=== PATIENT | female | born 1985 | race Caucasian/White ===

== ENCOUNTER 2023-05-25 10:57 | Emergency (ER) | payer BC, SELFPAY ==
[2023-05-25 10:59] VITALS: BP 114/78; PULSE 65; RESP 16; TEMP 36.2; O2SAT 100; BMI 19.5
--- NOTE | 2023-05-25 11:02 | ED_ITS ---
HPI - General Adult General Chief complaint: Chest Pain Stated complaint: chest pain Time Seen by Provider: 05/25/23 17:15 Source: patient Mode of arrival: ambulatory Limitations: no limitations History of Present Illness HPI narrative: Patient is a 37-year-old female presents emergency department for evaluation of chest pain. She reports that it has been intermittent for the past week, substernal, able to point to the area with 2 fingers, nonradiating, lasting 1-2 minutes before self-resolving. Reports that she has noticed it at times to be worse if she has not eaten in a while, but also has noticed it after eating as well. On 1 occurrence at a walker in the middle of the night. She denies any associated fevers, chills, cough, shortness of breath, difficulty breathing, nausea, vomiting, abdominal pain. Denies any use of oral contraceptives. Denies any personal history of DVT/PE, recent immobility, lower extremity redness pain or swelling, or recent surgery. Related Data Previous Rx's Medication Instructions Recorded omeprazole 20 mg capsule,delayed 20 mg PO DAILY #14 caps 05/25/23 release Allergies Allergy/AdvReac Type Severity Reaction Status Date / Time Penicillins Allergy Unknown Verified 05/25/23 11:05 Review of Systems Review of Systems: Constitutional : No Weight loss, No Fever, No Chills ENT/Mouth :? No sore throat, No Rhinorrhea Eyes: No Eye Pain, No Swelling Cardiovascular : pos Chest Pain, no SOB, no Dyspnea on Exertion, No Orthopnea, No Edema, No Palpitations Respiratory : No Cough, No Sputum Gastrointestinal : No Nausea, No Vomiting, No Diarrhea, No abdominal Pain, No Hematochezia, No Melena Genitourinary : No Dysuria, No Urinary Frequency Musculoskeletal : No joint pain, No Myalgias, No Joint Swelling Skin : No Skin Lesions, No rash Neuro : No Weakness, No Numbness, No Dizziness, No Headache Psych : No Anxiety/Panic, No Depression Heme/Lymph: No Bruising, No Lymphadenopathy Yes all other systems are reviewed and are negative [facility] Past Medical History Attestation statement: The following information was validated with the patient. Source: old records reviewed Social History Social History Advance Directives: No Advance Directives Information Provided: Yes Physical Exam ED Vital Signs: Vital Signs - 24 hr 05/25/23 10:59 05/25/23 17:22 Temperature 97.1 F 97.9 F Pulse Rate 65 44 L Respiratory Rate 16 Blood Pressure 114/78 125/54 L Pulse Oximetry 100 100 Oxygen Delivery Method Room Air Room Air BMI result Body Mass Index 19.5 Appearance: Alert.?Oriented to person, place and time. No acute distress.?Normal affect. Eyes: Pupils equal, round and reactive to light.? ENT: Pharynx normal.?? Neck: Normal inspection.? Neck supple.?? CVS: Heart sounds normal. Normal heart rate and rhythm.? Pulses normal.?? Respiratory: No respiratory distress.? Lung sounds clear to auscultation bilaterally. Midsternal reproducible chest pain with deep palpation? Abdomen: Soft and non-tender. Normoactive bowel sounds. ? Skin: Skin warm and dry.? Normal skin color.? Extremities: No lower extremity edema.? No calf ttp? Neuro: Moves all extremities spontaneously. Sensation intact bilaterally. CN II- XII intact. No focal neuro deficits. Ambulates with normal steady gait. Course Course Course Narrative: This is an RME: Additional HPI, ROS, PE not included below will be deferred to primary provider. This is a [id number], with no known past medical history, presenting to the emergency department to the emergency department with complaints of intermittent chest pain for the past week. Pain last for several minutes, resolves on its own. No shortness of breath. Pain has woken her up in the middle of the night. VSS. Plan: Further ED evaluation required. Labs, EKG, chest xray ordered. Medical Decision Making Medical Decision Making MDM Narrative: Patient is a 37-year-old female with no reported medical history who presents emergency department for evaluation of chest pain as per HPI. At the time my examination she is overall well-appearing, asymptomatic from pain at this time. She is afebrile, no hypoxia or tachypnea. Speaking clear full sentences. No respiratory compromise, LS CTA, low suspicion for pneumonia, pneumothorax, offered CXR, however used shared decision making with patient and she declines. Upon deep palpation of the midsternal region there is mildly reproducible chest pain. She has been noted to be bradycardic while in the emergency department, She is physically active, reports baseline heart rate 50-60 bpm's, she is currently asymptomatic, desk monitor revealing a sinus bradycardia. Reviewed labs obtained from rapid medical examination, no leukocytosis, no anemia, BMP is overall unremarkable. Troponin <2.7, EKG revealing normal sinus rhythm with no ST elevation, ST depression, or T-wave inversion, unlikely ACS. PERC negative, unlikely pulmonary embolism. Discussed etiologies for pain with patient at this time including musculoskeletal versus acid reflux, she would like to trial a cou rse of antacid management and follow-up with primary care provider which is reasonable. At this time she is stable for discharge. Reviewed worrisome signs and symptoms that would warrant re-evaluation in the emergency department. All questions were answered. Stable for discharge. Differential Diagnosis Differential Diagnoses: The differential diagnosis associated with the presentation includes (As noted above) Admission/Observation Consideration of admission/observation: Escalation of care including admission/observation considered (I considered admission for chest pain, based on history, physical examination, and all investigations, did not feel admission was warranted.) Lab Data MDM Lab Attestation statement: I reviewed the patient's lab results. (As noted above) 05/25/23 11:18 05/25/23 11:18 Labs: Lab Results 05/25/23 05/25/23 05/25/23 Range/Units 11:18 11:18 11:18 WBC 5.1 (4.8-10.8) X10*3/uL RBC 4.40 (4.20-5.50) X10*6/uL Hgb 12.7 (12.0-16.0) g/dl Hct 38.0 (37.0-47.0) % MCV 86.4 (80.0-98.0) fL MCH 28.9 (27.0-33.0) pg MCHC 33.4 (31.0-35.0) g/dl RDW 12.0 (11.0-16.0) % Plt Count 160 (160-400) X10*3/uL MPV 10.6 (9.4-12.3) fL Immature Gran % (Auto) 0.2 (0.0-0.4) % Neut % (Auto) 70.7 (45-73) % Lymph % (Auto) 19.7 L (20-40) % Wells % (Auto) 7.4 (2-11) % Eos % (Auto) 1.4 (0-4) % Baso % (Auto) 0.6 (0-2) % Lymph # (Auto) 1.0 L (1.2-4.9) X10*3/uL Wells # (Auto) 0.4 (0.1-1.2) X10*3/uL Eos # (Auto) 0.1 (0.0-0.4) X10*3/uL Baso # (Auto) 0.0 (0.0-0.2) X10*3/uL Abs Immat Gran (auto) 0.01 (0.00-0.03) X10*3/uL Absolute Neuts (auto) 3.6 (2.0-8.3) x10*3/uL Absolute Nucleated RBC 0.000 (0.0-0.012) X10*3/uL Nucleated RBC % (auto) 0.0 (0.0-0.2) /100WBC Sodium 141 (135-145) mmol/L Potassium 4.3 (3.3-5.1) mmol/L Chloride 109 H (96-108) mmol/L Carbon Dioxide 22 (22-29) mmol/L Anion Gap 14 (12-20) BUN 17 H (9-16) mg/dL Creatinine 0.77 (0.5-1.4) mg/dL Estim Creat Clear Calc 70.0 Estimated GFR > 60 Random Glucose 82 (60-115) mg/dL Calcium 9.1 (8.4-10.2) mg/dL Troponin I High Sens < 2.7 (<3.5-17.0) ng/L Independent Interpretation I performed an independent interpretation of an: EKG (As noted above) Tests considered The following testing was considered but not selected: Chest x-ray, shared decision making with patient, she declined. CTA chest, perc negative, unlikely pulmonary embolism, CT deferred Prescription Management I considered prescription management with: Other (PPI) Discharge Plan Discharge Clinical Impression: Chest pain Patient Disposition: Home, Self-Care Instructions: Chest Pain (ED), Noncardiac Chest Pain (ED) Additional Instructions: As we discussed your blood work today with overall normal. As we discussed you may trial a course of anti acid medication for management to see whether this resolves her symptoms. I have sent a prescription for omeprazole to your pharmacy. Additionally, at the time of your examination the pain did not seem to worsen with particular movement, however if you find this to be the case she may trial a course of anti-inflammatory medications such as ibuprofen. Please contact your primary care provider and arrange for a follow-up visit within 2 days. Please return back to the emergency department with any new or worsening symptoms or concerns. Prescriptions: New omeprazole 20 mg capsule,delayed release(DR/EC) 20 mg PO DAILY Qty: 14 0RF Referrals: Physician,None [Primary Care Provider] -
--- NOTE | 2023-05-25 11:04 | ECG_ITS ---
Test Reason : CP Blood Pressure : / mmHG Vent. Rate : 072 BPM Atrial Rate : 072 BPM P-R Int : 164 ms QRS Dur : 074 ms QT Int : 394 ms P-R-T Axes : 078 098 062 degrees QTc Int : 431 ms Normal sinus rhythm with sinus arrhythmia Rightward axis Borderline ECG No previous ECGs available Referred By: Generic ED Physician Electronically Signed By:BE GUZMAN MD
[2023-05-25 11:23] LABS: MANUAL DIFF FLAG NO
[2023-05-25 11:27] LABS: Basophils Percent Auto 0.6 % (0-2); Eosinophils Absolute Auto 0.1 X10*3/uL (0.0-0.4); Eosinophils Percent Auto 1.4 % (0-4); Hemoglobin 12.7 g/dl (12.0-16.0); Imm Gran Abs Auto 0.01 X10*3/uL (0.00-0.03); Imm Gran Pct Auto 0.2 % (0.0-0.4); Lymphocytes Percent Auto 19.7 % (20-40); Mean Corpuscular HGB Conc 33.4 g/dl (31.0-35.0); Mean Corpuscular Hemoglobin 28.9 pg (27.0-33.0); Mean Corpuscular Volume 86.4 fL (80.0-98.0); Mean Platelet Volume 10.6 fL (9.4-12.3); Monocytes Absolute Auto 0.4 X10*3/uL (0.1-1.2); Monocytes Percent Auto 7.4 % (2-11); Neutrophils Absolute Auto 3.6 x10*3/uL (2.0-8.3); Neutrophils Percent Auto 70.7 % (45-73); Platelet Count 160 X10*3/uL (160-400); White Blood Count 5.1 X10*3/uL (4.8-10.8)
[2023-05-25 11:37] LABS: Anion Gap 14 (12-20); Blood Urea Nitrogen 17 mg/dL (9-16); Calcium 9.1 mg/dL (8.4-10.2); Carbon Dioxide 22 mmol/L (22-29); Chloride 109 mmol/L (96-108); Estimated Glomerular Filt Rate > 60; Glucose Random 82 mg/dL (60-115); Potassium 4.3 mmol/L (3.3-5.1); Sodium 141 mmol/L (135-145)
[2023-05-25 11:45] LABS: Troponin-I High Sensitivity < 2.7 ng/L (<3.5-17.0)
[2023-05-25 17:22] VITALS: BP 125/54; PULSE 44; TEMP 36.6; O2SAT 100
--- NOTE | 2023-05-25 18:20 | PC.NURSE ---
PROVIDER IN TO SEE PATIENT. SHE IS IN A SINUS FRANKLIN IN THE 40'S. LAB RESULTS ARE WNL
[2023-05-25] MEDS: Omeprazole 20 MG CAPSULE.DR PO (19:01)
== END 2023-05-25 19:08 | disposition home or self-care (01) ==
PROVIDERS: Emergency Provider Internal Medicine
DX: R07.89 Other chest pain (principal); Z79.899 Other long term (current) drug therapy
CPT/HCPCS: 36415; 80048; 84484; 85025; 93005; 99284

== ENCOUNTER → 2023-05-25 11:04 | Outpatient (BNV) | payer SELFPAY | PROVIDERS: Visit Provider Internal Medicine Cardiovascular Disease | DX: R07.9 Chest pain, unspecified (principal) | CPT/HCPCS: 93010 ==